=== PATIENT | female | born 1955 | race Hispanic/Latino ===

== ENCOUNTER 2018-07-01 19:50 | Emergency (ER) | payer MEDICARE, MEDICAID ==
--- NOTE | 2018-07-01 20:53 | RAD ---
LEFT WRIST THREE VIEWS: 07/01/18 HISTORY: Fall. Pain. COMPARISON: None. FINDINGS: There is diffuse bone demineralization. No definite fractures are appreciated. Intercarpal and radioc arpal joint spaces are preserved. IMPRESSION: No definite fractures. If there is pain or point tenderness, immobilization and followup imaging in 7 to 10 days. POS: [facility]
--- NOTE | 2018-07-01 20:54 | RAD ---
FOUR VIEWS LEFT ELBOW: 07/01/18 HISTORY: Fall. Pain. FINDINGS: There is an impacted slightly displaced radial head fracture. Associated joint effusion. IMPRESSION: Radial head fracture. POS: [facility]
== END 2018-07-01 21:09 | disposition home or self-care (01) ==
LOC: ERS 19:50
DX: S52.122A Displaced fracture of head of left radius, initial encounter for closed fracture (principal); Z86.73 Personal history of transient ischemic attack (TIA), and cerebral infarction without residual deficits; E11.9 Type 2 diabetes mellitus without complications; E03.9 Hypothyroidism, unspecified; E78.5 Hyperlipidemia, unspecified; I10 Essential (primary) hypertension; F41.9 Anxiety disorder, unspecified; Z79.84 Long term (current) use of oral hypoglycemic drugs; Z79.899 Other long term (current) drug therapy; Z79.82 Long term (current) use of aspirin; W19.XXXA Unspecified fall, initial encounter

== ENCOUNTER 2023-03-10 13:28 | Outpatient (CLI) | payer OTHER, MEDICAID ==
[~2023-03-10 13:28] MED LIST: Magnevist 469MG/ML 20 ML VIAL ONE
== END 2023-03-10 13:29 | disposition home or self-care (01) ==
LOC: BICMRI 13:28
PROVIDERS: ATTEND Student in an Organized Health Care Education/Training Program
DX: R22.41 Localized swelling, mass and lump, right lower limb (principal); S83.241A Other tear of medial meniscus, current injury, right knee, initial encounter; M22.41 Chondromalacia patellae, right knee
CPT/HCPCS: 82565

== ENCOUNTER 2025-08-08 14:21 | Outpatient (CLI) | payer OTHER, MEDICAID | END 2025-08-08 14:22 | disposition home or self-care (01) | LOC: BICMAMMO 14:21 | DX: Z78.0 Asymptomatic menopausal state (principal); M81.0 Age-related osteoporosis without current pathological fracture; M85.851 Other specified disorders of bone density and structure, right thigh | CPT/HCPCS: 77080 ==